=== PATIENT | female | born 1960 | race American Indian/Alaskan Native ===

== ENCOUNTER 2017-03-04 11:57 | Outpatient (CLI) | payer MEDICAID ==
--- NOTE | 2017-03-04 13:07 | XRay Report ---
RIGHT KNEE RADIOGRAPHS INDICATION: Right knee swelling. COMPARISON: None similar. FINDINGS: AP, lateral and oblique right knee radiographs demonstrate large suprapatellar effusion. Intact bony articulation. Slight degenerative tibial spine prominence/spurring. CONCLUSION: Large right suprapatellar effusion and mild knee degenerative changes without acute bony abnormality. Thank you for the opportunity to participate in this patient's care.
== END 2017-03-04 11:58 | disposition home or self-care (01) ==
LOC: XRAY 11:57
PROVIDERS: ATTEND Internal Medicine
DX: M17.11 Unilateral primary osteoarthritis, right knee (principal); I10 Essential (primary) hypertension